=== PATIENT | female | born 1935 | race Caucasian/White ===

== ENCOUNTER → 2016-12-27 | Outpatient (CLI) | payer OTHER ==
[~2016-12-27] MED LIST: ACCUPRIL; ALREX10 ML; ANAPROX; ARICEPT 5 MG TAB5 MG PO; ASPIRIN; ATENOLOL 100MG100 MG; BACTRIM DS TAB1 EACH PO; BAYER CHEWABLE81 MG PO; CALTRATE-600 W1 EACH PO; DONNATAL EXTEN1 EACH PO; DYRENIUM100 MG PO; FISH OIL 1,001000 M2; FISHOIL; GLUCOSAMINE &1 EACH PO; LEVOTHYROXIN0.025 MG; LEVOXYL; LIPITOR10 MG; METAMUCIL0.52 GM PO; MULTIPLE VITAM1 EAC3 PO; NAMENDA 10 MG T10 MG PO; NAPROSYN500 MG; NORCO 5-325 TA1 EACH PO; NORVASC10 MG; POTASSIUM; POTASSIUM99 M1 PO; SONATA10 MG PO; TENORMIN; ULTRAM; VITAMIN D1000 UNI1 PO; VITAMIN E400 UNI2 PO; [UNRECOGNIZED DRUG - OTHER] PO
== END ==
LOC: RAD 12-26 00:08
DX: Z12.31 Encounter for screening mammogram for malignant neoplasm of breast (principal)

== ENCOUNTER 2017-04-15 16:34 | Inpatient (IN) | payer OTHER ==
[~2017-04-15] VITALS: Ht 162.6 cm; Wt 66.2 kg
[~2017-04-15 16:34] MED LIST changes: +ARICEPT10 M1 PO; +CARDIZEM CD 18180 M3 PO; +ELIQUIS5 MG PO; +LEVOXYL125 MCG PO; +LOPRESSOR25 PO; +METOPROLOL TART25 MG PO; +PACERONE 200 M200 M1 PO; +QUINAPRIL HCL40 MG PO; +SIMVASTATIN40 MG PO; +SYNTHROID150 MCG PO
[2017-04-15 17:08] VITALS: BP 135/55
[2017-04-15 17:17] LABS: HEMATOCRIT 37.1 % (37.0-47.0); HEMOGLOBIN 12.5 gm/dL (12.0-15.0); MCH 31.2 pg (26.0-34.0); MCHC 33.6 g/dL (28.0-37.0); MCV 92.8 fL (80.0-100.0); PLATELET COUNT 195 thou/uL (150-400); RDW 14.4 % (10.5-14.5); WBC 9.7 thou/uL (4.0-11.0)
[2017-04-15 17:28] LABS: CALCIUM 8.8 mg/dL (8.5-10.1); POTASSIUM 4.3 mmol/L (3.5-5.1)
[2017-04-15 17:34] LABS: ALBUMIN 3.6 g/dL (3.4-5.0); TOTAL BILIRUBIN 0.4 mg/dL (<0.1-1.0); TOTAL PROTEIN 7.2 g/dL (6.4-8.2)
[2017-04-15 17:35] LABS: ABSOLUTE NEUTROPHILS 7.8 thou/uL (1.4-8.2)
[2017-04-15 18:21] VITALS: BP 135/55
[2017-04-15 18:52] VITALS: BP 133/77
[2017-04-15 19:56] VITALS: BP 143/65
[2017-04-15] MEDS ORDERED: ACCUPRIL5 MG PO (20:31)
[2017-04-16 04:33] VITALS: BP 143/57
[2017-04-16 09:07] VITALS: BP 131/55
[2017-04-16 17:37] VITALS: BP 125/48
[2017-04-16] MEDS ORDERED: ATENOLOL 25 MG25 M1 PO (19:16)
[2017-04-16] MEDS ORDERED: AMLODIPINE BESY10 MG PO (19:30)
[2017-04-16] MEDS ORDERED: NAMENDA XR28 MG PO (19:31)
[2017-04-16] MEDS ORDERED: CYTOMEL 25 MCG25 MC1 PO (19:34)
[2017-04-16] MEDS ORDERED: ALREX5 ML OPHTHALMIC (19:35)
[2017-04-16] MEDS ORDERED: LUTEIN1 GM PO (19:36)
[2017-04-16] MEDS ORDERED: FISH OIL 1,001000 M2 PO (19:36)
[2017-04-16] MEDS ORDERED: UNICOMPLEX M TA1 TA1 PO (19:37)
[2017-04-16] MEDS ORDERED: ALEVE220 MG PO (19:37)
[2017-04-16] MEDS ORDERED: VITAMIN D3400 UNIT PO (19:37)
[2017-04-16] MEDS ORDERED: VITAMIN E400 UNIT PO (19:38)
[2017-04-16] MEDS ORDERED: GLUCOSAMINE HC500 MG PO (19:38)
[2017-04-16] MEDS ORDERED: CHILDREN'S ASPI81 M1 PO (19:39)
[2017-04-16] MEDS ORDERED: COCONUT OIL1000 MG PO (19:39)
[2017-04-16] MEDS ORDERED: POTASSIUM99 M1 PO (19:40)
[2017-04-16 19:51] VITALS: BP 135/46
[2017-04-17 04:48] VITALS: BP 175/65
[2017-04-17 08:00] VITALS: BP 146/59
[2017-04-17] MEDS ORDERED: CEFUROXIME500 MG PO (09:53)
[2017-04-17 10:38] VITALS: BP 146/59
[2017-04-17 13:51] VITALS: BP 146/59
== END 2017-04-17 14:22 | disposition home or self-care (01) | DRG 603 ==
LOC: ER 16:34 → 4S 18:04 → EROBS 18:04 → 4S 18:53 → ENTRNSPT 04-17 13:45 → EDTRNSPTSTS 04-17 13:48 → 4S 04-17 14:22
PROVIDERS: Nurse Practitioner Family
DX: L03.116 Cellulitis of left lower limb (principal); F03.90 Unspecified dementia, unspecified severity, without behavioral disturbance, psychotic disturbance, mood disturbance, and anxiety; B35.1 Tinea unguium; I10 Essential (primary) hypertension; Z90.710 Acquired absence of both cervix and uterus; Z98.41 Cataract extraction status, right eye; Z90.49 Acquired absence of other specified parts of digestive tract; Z86.14 Personal history of Methicillin resistant Staphylococcus aureus infection; Z79.899 Other long term (current) drug therapy; Z79.82 Long term (current) use of aspirin
CPT/HCPCS: 10195

== ENCOUNTER 2017-05-03 15:38 | Inpatient (IN) | payer OTHER ==
[~2017-05-03] VITALS: Ht 167.6 cm; Wt 67.6 kg
--- NOTE | ~2017-05-03 | HC ---
[facility] [place] [address] CONSULTATION Name: FERNANDO ANDRE Room #: 441-P [facility] M.R.#: [id number] Admission: 05/03/17 Attend Phys: Dutch Horvath DO Discharge: Date of : 39 Report #: [id number] THIS REPORT FOR: //name// CC: Dutch Masters DATE OF SERVICE: 05/04/2017 CHIEF COMPLAINT: Cellulitis, left lower extremity. HISTORY OF PRESENT ILLNESS: This is a 81-year-old female patient whom I saw in the clinic yesterday. She had previously been admitted on 04/15 with cellulitis of her foot with small ulcerations on the dorsal aspect of her great toe. She was treated with intravenous clindamycin for 48 hours and then sent home on oral Ceftin for 5 days. Things did improve; however, subsequently the patient's cellulitis has recurred with increasing erythema, pain and swelling of her left lower extremity. I saw her in clinic as an initial consultation. I had not seen her previously and felt that admission would be warranted. PAST MEDICAL HISTORY: Positive for history of atrial fibrillation with rapid ventricular response, previous cellulitis and renal insufficiency as well as a history of epistaxis and near syncope. MEDICATIONS: Include: Amiodarone, acetaminophen, Eliquis, aspirin, cefazolin, cholecalciferol, diltiazem, fish oil, ____, famotidine, acidophilus, Synthroid, lisinopril, melatonin, memantine, Nitrostat, Zofran and polyethylene glycol. ALLERGIES: None. SOCIAL HISTORY: Negative for alcohol or tobacco use. She is and accompanied by her . REVIEW OF SYSTEMS: CONSTITUTIONAL: The patient denies fever, chills or weight loss. NEUROLOGICAL: The patient denies focal weakness. ENT: The patient denies earache, nasal drainage or sore throat. CARDIOVASCULAR: The patient denies chest pain, palpitation or diaphoresis. PULMONARY: The patient denies cough or shortness of breath. GASTROINTESTINAL: The patient denies nausea, vomiting, diarrhea or abdominal pain. ORTHOPEDIC: The patient notes the pain, swelling and redness of her left lower extremity. Other systems in a 14-point review of systems are negative. PHYSICAL EXAMINATION: VITAL SIGNS: Include respiratory rate of 16, pulse 77, blood pressure of 132/57 and temperature 99.0. [facility] [address] [place] [address] CONSULTATION Name: FERNANDO ANDRE Room #: 441-P [facility] M.R.#: [id number] Admission: 05/03/17 Attend Phys: Dutch Horvath DO Discharge: Date of : 39 Report #: [id number] GENERAL: This is a chronically ill-appearing female patient who appears to be in minimal distress. HEENT: Head is normocephalic. Nose and throat is clear. NECK: Supple. LUNGS: Clear. HEART: Irregular without murmur. ABDOMEN: Soft. Bowel sounds are present. EXTREMITIES: Demonstrate palpable distal pulses. Examination of the left lower extremity demonstrates significant erythema on the dorsal aspect of the foot extending up to just below the knee area with erythema, swelling, warmth and petechiae. LABORATORY DATA: Includes sodium 138, potassium 4.1, chloride 102, CO2 of 29, BUN is 30, creatinine 0.9, glucose is 95. SGOT is 31, total bilirubin 0.3, calcium is 9.1, alkaline phosphatase 81, SGPT is 26. Total protein 7.1 and albumin is 3.2. White blood cell count 10.5, hemoglobin 12.2 and hematocrit of 36.8. Differential shows 84 neutrophils, 18 bands, 5 lymphocytes and 8 monocytes. MRSA PCR is pending. CLINICAL IMPRESSION: 1. Ulceration, left great toe. 2. Cellulitis involving the left foot and leg up to the knee level. RECOMMENDATIONS: The patient is admitted to the hospital and started on intravenous vancomycin. I have taken a culture and sensitivity from the ulceration on the dorsal aspect of the left great toe. Hopefully, we will get an organism that would allow us to be more directed with antibiotic therapy. Continue elevation of the legs. All questions have been answered. I appreciate being asked to see her again in consultation. <ELECTRONICALLY SIGNED> By: Thang Nunez MD 05/05/17 [id number] Thang Nunez MD /nt
[~2017-05-03 15:38] MED LIST changes: -ACCUPRIL10 MG PO; -ANCEF 1GM1 GM/50 M1 IVPB; -KEFLEX500 M2 PO; -NAPROSYN500 MG PO
[2017-05-03 17:28] VITALS: BP 130/74
[2017-05-03 17:30] LABS: ABSOLUTE NEUTROPHILS 8.9 thou/uL (1.4-8.2); BASOPHILS 0.5 % (0.0-2.0); EOSINOPHILS 0.5 % (0.0-3.0); HEMATOCRIT 36.8 % (37.0-47.0); HEMOGLOBIN 12.2 gm/dL (12.0-15.0); LYMPHOCYTES 5.6 % (24.0-44.0); MCH 30.6 pg (26.0-34.0); MCHC 33.2 g/dL (28.0-37.0); MONOCYTES 8.9 % (1.0-8.0); PLATELET COUNT 166 thou/uL (150-400); POLYS 84.5 % (36.0-66.0); RDW 14.8 % (10.5-14.5); WBC 10.5 thou/uL (4.0-11.0)
[2017-05-03 17:40] LABS: CALCIUM 9.1 mg/dL (8.5-10.1); CREATININE 0.9 mg/dL (0.6-1.0); POTASSIUM 4.1 mmol/L (3.5-5.1)
[2017-05-03 17:46] LABS: ALBUMIN 3.2 g/dL (3.4-5.0); TOTAL BILIRUBIN 0.3 mg/dL (<0.1-1.0); TOTAL PROTEIN 7.1 g/dL (6.4-8.2)
[2017-05-03 17:47] LABS: ALBUMIN 3.3 g/dL (3.4-5.0); DIRECT BILIRUBIN < 0.1 mg/dL (<0.1-0.3); SGOT 33 U/L (15-37); SGPT 28 U/L (30-65); TOTAL BILIRUBIN 0.3 mg/dL (<0.1-1.0); TOTAL PROTEIN 6.5 g/dL (6.4-8.2)
[2017-05-03 18:14] LABS: FOLIC ACID 18.7 ng/mL (8.6-58.9); TSH 1.988 uIU/mL (0.358-3.740)
[2017-05-03 18:22] LABS: INR 1.1; PROTIME 10.8 Seconds (9.3-11.4)
[2017-05-03 20:07] VITALS: BP 137/55
[2017-05-03 20:29] LABS: URINE BILIRUBIN NEGATIVE (Negative); URINE BLOOD 2+ (Negative); URINE CLARITY CLEAR; URINE COLOR YELLOW; URINE GLUCOSE-RANDOM* NEGATIVE (Negative); URINE KETONES NEGATIVE (Negative); URINE LEUKOCYTES-REFLEX NEGATIVE (Negative); URINE NITRITE-REFLEX NEGATIVE (Negative); URINE PROTEIN (DIPSTICK) TRACE (Negative); URINE UROBILINOGEN 0.2 E.U./dl (0.2-1.0)
[2017-05-03 20:39] LABS: CASTS None Seen /LPF (None Seen); CRYSTALS None Seen /LPF (None Seen); MUCUS >6 Heavy strn/LPF (None Seen); SQUAMOUS >10 Many /LPF (0-3); URINE RBC 3-10 Few /HPF (0-2); URINE WBC-REFLEX 6-15 Few /HPF (0-5)
[2017-05-03 23:39] VITALS: BP 146/75
[2017-05-04 03:57] VITALS: BP 144/72
[2017-05-04 07:23] VITALS: BP 144/60
[2017-05-04] MEDS ORDERED: NAPROSYN500 MG PO (08:14)
[2017-05-04] MEDS ORDERED: ACCUPRIL10 MG PO (08:15)
[2017-05-04 15:43] VITALS: BP 132/57
[2017-05-04 19:06] VITALS: BP 131/57
[2017-05-05 06:13] LABS: HEMATOCRIT 35.3 % (37.0-47.0); HEMOGLOBIN 11.9 gm/dL (12.0-15.0); MCH 30.6 pg (26.0-34.0); MCHC 33.5 g/dL (28.0-37.0); MCV 91.1 fL (80.0-100.0); PLATELET COUNT 165 thou/uL (150-400); RBC 3.88 mil/uL (4.20-5.00); RDW 14.4 % (10.5-14.5)
[2017-05-05 06:23] VITALS: BP 133/64
[2017-05-05 06:29] LABS: CALCIUM 8.9 mg/dL (8.5-10.1); CREATININE 0.8 mg/dL (0.6-1.0); POTASSIUM 3.5 mmol/L (3.5-5.1)
[2017-05-05 07:26] LABS: ABSOLUTE NEUTROPHILS 5.8 thou/uL (1.4-8.2); ATYPICAL LYMPHS 3 %
[2017-05-05 07:27] LABS: ANISOCYTOSIS SLIGHT
[2017-05-05 07:32] VITALS: BP 133/57
[2017-05-05 08:00] VITALS: BP 133/57
[2017-05-05 15:41] VITALS: BP 114/85
[2017-05-05 19:16] VITALS: BP 144/76
[2017-05-06 03:29] VITALS: BP 143/67
[2017-05-06 03:53] LABS: HEMATOCRIT 34.8 % (37.0-47.0); HEMOGLOBIN 11.8 gm/dL (12.0-15.0); MCV 91.1 fL (80.0-100.0); PLATELET COUNT 193 thou/uL (150-400); RBC 3.82 mil/uL (4.20-5.00); RDW 14.4 % (10.5-14.5); WBC 7.9 thou/uL (4.0-11.0)
[2017-05-06 04:04] LABS: CREATININE 0.8 mg/dL (0.6-1.0)
[2017-05-06 05:10] LABS: ABSOLUTE NEUTROPHILS 5.1 thou/uL (1.4-8.2); ATYPICAL LYMPHS 1 %
[2017-05-06 08:00] VITALS: BP 149/74
[2017-05-06 16:00] VITALS: BP 142/77
[2017-05-06 18:19] VITALS: BP 124/70
[2017-05-07 04:23] VITALS: BP 134/63
[2017-05-07 06:05] LABS: HEMATOCRIT 35.5 % (37.0-47.0); HEMOGLOBIN 11.8 gm/dL (12.0-15.0); MCH 30.1 pg (26.0-34.0); MCHC 33.4 g/dL (28.0-37.0); MCV 90.2 fL (80.0-100.0); PLATELET COUNT 200 thou/uL (150-400); RBC 3.93 mil/uL (4.20-5.00); RDW 14.4 % (10.5-14.5); WBC 6.7 thou/uL (4.0-11.0)
[2017-05-07 06:22] LABS: CALCIUM 8.9 mg/dL (8.5-10.1); CREATININE 0.8 mg/dL (0.6-1.0); POTASSIUM 3.9 mmol/L (3.5-5.1)
[2017-05-07 08:00] VITALS: BP 136/64
[2017-05-07 08:32] LABS: ABSOLUTE NEUTROPHILS 3.8 thou/uL (1.4-8.2); ATYPICAL LYMPHS 2 %; PLATELET ESTIMATE NORMAL
[2017-05-07 16:00] VITALS: BP 114/54
[2017-05-07 19:01] VITALS: BP 127/51
[2017-05-08 04:49] VITALS: BP 114/56
[2017-05-08 08:00] VITALS: BP 135/62
[2017-05-08] MEDS ORDERED: ANCEF 1GM1 GM/50 M1 IVPB (08:33)
[2017-05-08] MEDS ORDERED: KEFLEX500 M2 PO (12:56)
[2017-05-08 15:04] VITALS: BP 135/62
== END 2017-05-08 17:45 | disposition home or self-care (01) | DRG 602 ==
LOC: 4S 15:38 → ENTRNSPT 05-08 15:46 → EDTRNSPTSTS 05-08 15:50 → 4S 05-08 17:45
PROVIDERS: Family Medicine; Nurse Practitioner
DX: L03.032 Cellulitis of left toe (principal); E43 Unspecified severe protein-calorie malnutrition; F03.90 Unspecified dementia, unspecified severity, without behavioral disturbance, psychotic disturbance, mood disturbance, and anxiety; I48.91 Unspecified atrial fibrillation; E78.5 Hyperlipidemia, unspecified; I10 Essential (primary) hypertension; E03.9 Hypothyroidism, unspecified; R53.81 Other malaise; M19.90 Unspecified osteoarthritis, unspecified site; Z66 Do not resuscitate; R41.89 Other symptoms and signs involving cognitive functions and awareness; L97.529 Non-pressure chronic ulcer of other part of left foot with unspecified severity; Z86.14 Personal history of Methicillin resistant Staphylococcus aureus infection; Z90.710 Acquired absence of both cervix and uterus; Z98.41 Cataract extraction status, right eye; K58.9 Irritable bowel syndrome, unspecified
CPT/HCPCS: 10102

== ENCOUNTER → 2017-05-03 | Outpatient (CLI) | payer OTHER ==
[~2017-05-03] MED LIST changes: +ACCUPRIL10 MG PO; +ACCUPRIL5 MG PO; +ALEVE220 MG PO; +ALREX5 ML OPHTHALMIC; +AMLODIPINE BESY10 MG PO; +ANCEF 1GM1 GM/50 M1 IVPB; +ATENOLOL 25 MG25 M1 PO; +CEFUROXIME500 MG PO; +CHILDREN'S ASPI81 M1 PO; +COCONUT OIL1000 MG PO; +CYTOMEL 25 MCG25 MC1 PO; +FISH OIL 1,001000 M2 PO; +GLUCOSAMINE HC500 MG PO; +KEFLEX500 M2 PO; +LUTEIN1 GM PO; +NAMENDA XR28 MG PO; +NAPROSYN500 MG PO; +UNICOMPLEX M TA1 TA1 PO; +VITAMIN D3400 UNIT PO; +VITAMIN E400 UNIT PO
== END ==
LOC: HYPER 07:07
DX: L89.892 Pressure ulcer of other site, stage 2 (principal); L03.116 Cellulitis of left lower limb; I10 Essential (primary) hypertension; L84 Corns and callosities; E78.00 Pure hypercholesterolemia, unspecified; I38 Endocarditis, valve unspecified; G30.0 Alzheimer's disease with early onset; Z90.710 Acquired absence of both cervix and uterus

== ENCOUNTER → 2017-05-15 | Outpatient (CLI) | payer OTHER ==
[~2017-05-15] MED LIST changes: +ACCUPRIL10 MG PO; +ANCEF 1GM1 GM/50 M1 IVPB; +KEFLEX500 M2 PO; +NAPROSYN500 MG PO
== END ==
LOC: HYPER 06:55
DX: L03.116 Cellulitis of left lower limb (principal); L84 Corns and callosities; G30.0 Alzheimer's disease with early onset; I10 Essential (primary) hypertension; E78.00 Pure hypercholesterolemia, unspecified; F02.80 Dementia in other diseases classified elsewhere, unspecified severity, without behavioral disturbance, psychotic disturbance, mood disturbance, and anxiety; Z90.710 Acquired absence of both cervix and uterus

== ENCOUNTER → 2017-05-22 | Outpatient (CLI) | payer OTHER | LOC: HYPER 07:10 | DX: L03.116 Cellulitis of left lower limb (principal); L84 Corns and callosities; G30.0 Alzheimer's disease with early onset; E78.00 Pure hypercholesterolemia, unspecified; I11.9 Hypertensive heart disease without heart failure; F02.80 Dementia in other diseases classified elsewhere, unspecified severity, without behavioral disturbance, psychotic disturbance, mood disturbance, and anxiety; Z90.710 Acquired absence of both cervix and uterus ==

== ENCOUNTER → 2017-05-29 | Outpatient (CLI) | payer OTHER | LOC: HYPER 06:47 | DX: L89.892 Pressure ulcer of other site, stage 2 (principal); L84 Corns and callosities; R60.0 Localized edema; G30.0 Alzheimer's disease with early onset; I10 Essential (primary) hypertension; E78.00 Pure hypercholesterolemia, unspecified; Z90.710 Acquired absence of both cervix and uterus ==

== ENCOUNTER → 2017-06-05 | Outpatient (CLI) | payer OTHER | LOC: HYPER 06:59 | DX: L89.629 Pressure ulcer of left heel, unspecified stage (principal); L03.116 Cellulitis of left lower limb; L84 Corns and callosities; R60.0 Localized edema; G30.0 Alzheimer's disease with early onset; I10 Essential (primary) hypertension; E78.00 Pure hypercholesterolemia, unspecified; Z90.710 Acquired absence of both cervix and uterus ==

== ENCOUNTER → 2017-07-03 | Outpatient (CLI) | payer OTHER | LOC: HYPER 06-19 09:09 | DX: L89.893 Pressure ulcer of other site, stage 3 (principal); L03.116 Cellulitis of left lower limb; L84 Corns and callosities; R60.0 Localized edema; G30.0 Alzheimer's disease with early onset; I10 Essential (primary) hypertension; E78.00 Pure hypercholesterolemia, unspecified; Z90.710 Acquired absence of both cervix and uterus ==

== ENCOUNTER → 2017-07-17 | Outpatient (CLI) | payer OTHER | LOC: HYPER 06:47 | DX: L89.893 Pressure ulcer of other site, stage 3 (principal); L89.620 Pressure ulcer of left heel, unstageable; L84 Corns and callosities; R60.0 Localized edema; G30.0 Alzheimer's disease with early onset; I10 Essential (primary) hypertension; E78.00 Pure hypercholesterolemia, unspecified; Z90.710 Acquired absence of both cervix and uterus ==

== ENCOUNTER → 2017-08-07 | Outpatient (CLI) | payer OTHER | LOC: HYPER 06:55 | DX: L89.620 Pressure ulcer of left heel, unstageable (principal); L89.893 Pressure ulcer of other site, stage 3; L84 Corns and callosities; R60.0 Localized edema; G30.0 Alzheimer's disease with early onset; I10 Essential (primary) hypertension; E78.00 Pure hypercholesterolemia, unspecified ==

== ENCOUNTER → 2018-02-20 | Outpatient (CLI) | payer OTHER | LOC: RAD 01:14 | DX: Z12.31 Encounter for screening mammogram for malignant neoplasm of breast (principal) ==

== ENCOUNTER → 2018-05-07 | Outpatient (CLI) | payer OTHER | LOC: HYPER 07:25 | DX: L89.622 Pressure ulcer of left heel, stage 2 (principal); L89.892 Pressure ulcer of other site, stage 2; L84 Corns and callosities; E78.00 Pure hypercholesterolemia, unspecified; E07.89 Other specified disorders of thyroid; I10 Essential (primary) hypertension; G30.0 Alzheimer's disease with early onset; F02.80 Dementia in other diseases classified elsewhere, unspecified severity, without behavioral disturbance, psychotic disturbance, mood disturbance, and anxiety ==

== ENCOUNTER → 2019-04-11 | Outpatient (CLI) | payer OTHER | LOC: SJCVC 09:53 | DX: I44.0 Atrioventricular block, first degree (principal); I48.0 Paroxysmal atrial fibrillation; R00.1 Bradycardia, unspecified; E78.00 Pure hypercholesterolemia, unspecified; G30.9 Alzheimer's disease, unspecified; F02.80 Dementia in other diseases classified elsewhere, unspecified severity, without behavioral disturbance, psychotic disturbance, mood disturbance, and anxiety; I10 Essential (primary) hypertension; D68.59 Other primary thrombophilia; I35.2 Nonrheumatic aortic (valve) stenosis with insufficiency; Z79.899 Other long term (current) drug therapy ==

== ENCOUNTER → 2020-04-14 | Outpatient (CLI) | payer OTHER | LOC: SJCVC 09:36 | PROVIDERS: ATTEND Internal Medicine Cardiovascular Disease | DX: R94.31 Abnormal electrocardiogram [ECG] [EKG] (principal); I44.0 Atrioventricular block, first degree; I48.0 Paroxysmal atrial fibrillation; I10 Essential (primary) hypertension; I05.9 Rheumatic mitral valve disease, unspecified; G30.9 Alzheimer's disease, unspecified; D68.59 Other primary thrombophilia; E78.00 Pure hypercholesterolemia, unspecified; E03.9 Hypothyroidism, unspecified; F02.80 Dementia in other diseases classified elsewhere, unspecified severity, without behavioral disturbance, psychotic disturbance, mood disturbance, and anxiety; Z88.8 Allergy status to other drugs, medicaments and biological substances ==